=== PATIENT | male | born 1955 | race Caucasian/White ===

== ENCOUNTER → 2018-08-22 10:07 | Outpatient (CLI) | payer MEDICARE, OTHER, SELFPAY ==
--- NOTE | 2018-08-22 | DI.CT.S_ITS ---
PROCEDURE: CT SINUS SCREEN WO CON INDICATIONS: SINUSITIS TECHNIQUE: Noncontrast 3.0 mm axial images acquired from the frontal sinuses to the mid-sella, with coronal and sagittal reformats. For radiation dose reduction, the following was used: automated exposure control, adjustment of mA and/or kV according to patient size. COMPARISON: None. FINDINGS: Image quality: Excellent. Maxillary Sinuses: No bony remodeling or destruction. Sinuses are clear. Ethmoid Air Cells: No bony remodeling or destruction. Sinuses are clear. Sphenoid Sinuses: No bony remodeling or destruction. Sinuses are clear. Frontal Sinuses: No bony remodeling or destruction. Sinuses are clear. Note is made that the right frontal sinus is poorly developed. Ostiomeatal Complexes: Ostiomeatal complexes are patent, yet they are constitutionally narrowed. No Danielle cells. Miscellaneous: Visualized intra-orbital contents are normal. There is a minimal right sided mitch bullosa. There is moderate leftward nasal septal deviation. IMPRESSION: No significant active paranasal sinus disease is seen. Constitutionally narrowed ostiomeatal complexes, which remain patent. Moderate leftward nasal septal deviation. Dictated by: Phan Del Real M.D. on 08/22/2018 at 9:39 Approved by: Phan Del Real M.D. on 08/22/2018 at 9:41
== END ==
PROVIDERS: PCP Internal Medicine; Visit Provider Family Medicine
DX: J01.90 Acute sinusitis, unspecified (principal); J34.2 Deviated nasal septum
CPT/HCPCS: 70486

== ENCOUNTER → 2019-07-05 08:36 | Outpatient (CLI) | payer MEDICARE, OTHER, SELFPAY ==
[2019-07-05 09:18] LABS: Add Manual Diff / Slide Review NO; Basophils Absolute Auto 0 /uL (0-100); Basophils Percent Auto 0.7 % (0-2); Eosinophils Absolute Auto 200 /uL (0-450); Eosinophils Percent Auto 2.6 % (2-4); Hematocrit 46.2 % (41-53); Lymphocytes Absolute Auto 2200 /uL (1100-4500); Mean Corpuscular HGB Conc 34.7 % (30-36); Mean Corpuscular Volume 89.5 fL (80-100); Monocytes Absolute Auto 700 /uL (0-900); Monocytes Percent Auto 9.3 % (3-14); Neutrophils Absolute Auto 4100 /uL (1500-7000); Neutrophils Percent Auto 57.4 % (50-75); Platelet Count 236 X10^3/uL (150-400); Red Blood Cell Count 5.16 X10^6/uL (4.5-5.9); Red Cell Distribution Width 13.2 % (11.6-14.8); White Blood Cell Count 7.2 X10^3/uL (4.5-11.0)
[2019-07-05 09:57] LABS: Albumin 4.3 g/dL (3.5-5.0); BUN Creatinine Ratio 23.3 (6-22); Blood Urea Nitrogen 21 mg/dL (9-20); Calcium 9.9 mg/dL (8.4-10.2); Carbon Dioxide 30 mmol/L (22-32); Chloride 102 mmol/L (98-107); Estimated Glomerular Filt Rate > 60.0 mL/min (>60); Glucose 114 mg/dL (80-110); HEMOLYSIS < 15 (0-50); Phosphorous 3.1 mg/dL (2.3-3.7); Potassium 4.8 mmol/L (3.4-5.1); Sodium 139 mmol/L (137-145)
== END ==
PROVIDERS: PCP Family Medicine; Visit Provider Orthopaedic Surgery Foot and Ankle Surgery
DX: Z01.812 Encounter for preprocedural laboratory examination (principal); Z01.818 Encounter for other preprocedural examination
CPT/HCPCS: 36415; 80069; 85025; 93005

== ENCOUNTER 2019-07-13 09:28 | Day surgery (SDC) | payer MEDICARE, OTHER, SELFPAY ==
[2019-07-09 15:20] VITALS: BMI 30.8
[2019-07-13] VITALS (7 sets, daily range): BP systolic 126–147; BP diastolic 80–92; PULSE 60–82; RESP 8–18; TEMP 36.1–36.8; O2SAT 93–98; BMI 30.8
--- NOTE | 2019-07-13 | DI.RAD.S_ITS ---
PROCEDURE: XR FOOT RT 2V INDICATIONS: BUNION CORRECTION W/ 1ST TARSAL TECHNIQUE: 2 views of the foot were acquired. COMPARISON: [facility] [place], [place], XR FOOT 3 VIEWS WEIGHT BEARING RIGHT, 06/29/2019, 8:22. FINDINGS: Limited intraoperative fluoroscopic images of the right foot were acquired. Status post interval bunionectomy of the right first metatarsophalangeal joint with base of first metatarsal osteotomy and arthrodesis across the first tarsometatarsal joint. No acute hardware complication. Soft tissue anchors noted over the head of the second and third metatarsals. IMPRESSION: Intraoperative fluoroscopic support for right foot bunionectomy and first metatarsal osteotomy with arthrodesis across the first tarsometatarsal joint. Dictated by: Daquan Mckeon M.D. on 07/14/2019 at 0:19 Approved by: Daquan Mckeon M.D. on 07/14/2019 at 0:22
--- NOTE | 2019-07-13 10:23 | PM.PREOP ---
Pre-operative Note Interval Note History & Physical reviewed/Exam performed by Physician: Yes Changes to H&P: No
--- NOTE | 2019-07-13 10:53 | P.OP_ITS ---
Operative Date/Time/Diagnoses Date of procedure: 07/13/19 Time of procedure: 13:45 Pre-op diagnosis: Right hallux valgus deformity M20.11 Right 2nd and 3rd metatarsalgia Post-op diagnosis: same Procedure & Clinicians Procedure: 1. Right lapidus bunionectomy 1st tarsometatarsal arthrodesis CPT code 40246 2. Kim metatarsal shortening osteotomy 2nd metatarsal 94531 3. Kim metartsal shortening osteotmy 3rd metatarsal 36946 Indications: Patient is a 64-year-old male with a chronically painful right hallux valgus deformity. He has not been able to get relief with alternative shoes and non operative treatment. He also endorses pain under the 2nd and 3rd metatarsal heads. He has been indicated for bunion correction and shortening osteotomies of the 2nd and 3rd metatarsals for metatarsalgia. We discussed the rationale for risks of and prolonged recovery associated with the surgery. The patient expressed understanding of all issues including risks of infection, nerve damage, wound dehiscence, nonunion, malunion, symptomatic hardware, over correction or under correction of the deformity, incomplete relief of pain, inability to return to the patient's desired level function, generalized dissatisfaction with the surgical procedure and outcomes, deep vein thrombosis, pulmonary embolism, cardiac complications and . Patient understands the healing bones and soft tissues will take approximately 3 months and for full recovery 6 - 9 months. The patient also understands that it is critical to strictly elevate the operative extremity for the 1st 2 weeks after surgery to control both swelling and pain. Patient was counseled no weight will be allowed on the surgical leg until the patient is instructed that it is safe to initiate weight-bearing. Surgeon: Elisabeth Simon Click Yes if Unassisted: Yes Anesthesia Type: General Operative Notes Findings: Hallux valgus with hypermobile 1st ray. Hyperkeratotic area under the 2nd metatarsal. First TMT joint was debrided and repaired and secured with a regular standard right side Arthrex plantar Lapidus plate. Second Kim osteotomy was stabilized with a 2.0x 12 mm snap-off screw from the Arthrex set, 3rd metatarsal Kim was completed with an 11 mm 2.0 snap-off screw Closure Type: primary Specimen(s): none sent Applied: implant(s) (Arthrex right side standard plantar Lapidus plate and screws. 4.0 lag screw, 3.5 locking screws. Kim osteotomies were fixed with 2.0 snap-off screws) Estimated Blood Loss (mL): 20 Blood products transfused: none Tourniquet time (min): 120 Procedure in detail: The patient was seen in the preoperative area and the c onsent was confirmed and the surgical site was marked. Final questions were answered. The patient was brought to the operating room by the anesthesia team. All bony prominences were padded the patient was moved to the supine position. A well-padded thigh tourniquet was placed. Padding was placed and the peroneal nerve. The non operative extremity was placed into an SCD. The right lower extremity was prepped and draped in the standard fashion with the preoperative scrub with alcohol and chlorhexidine. Formal time-out procedure was performed confirming the patient's side and site of surgery presence of informed consent and administration of antibiotics which was clindamycin due to the patient's penicillin allergy. All were in agreement. Planned implants were in the room and accounted for. Esmarch bandage used for exsanguination and the tourniquet was raised on the thigh to 250 mm of mercury and stayed there for 120 minutes. Attention was turned to the right leg and foot. There is a moderate hallux valgus deformity with a hypermobile 1st ray. Additionally the relatively long and symptomatic 2nd and 3rd metatarsalgia. Attention was turned to the great toe. A plantar medial incision was made along the medial cuneiform and longitudinal border of the medial foot out and over the medial eminence to expose both the 1st TMT joint as well as the medial eminence. This was taken down through the skin subcutaneous tissue. Care was taken distally to protect the dorsal cutaneous nerve branch this was retracted dorsally. Capsulotomy was performed and this was elevated off the medial eminence to expose it. Additionally approximately at the 1st TMT joint the 1st TMT joint was exposed care was taken to protect the tibialis anterior insertion. And to expose the access to the plantar surface of the 1st TMT joint. Once the 1st TMT joint was exposed the K-wire tractor was placed distracting the joint. Osteotomes from the Synthes joint prep set were used to peel off the cartilage from the 1st TMT joint. Following this the power rasp was used to freshen the edges. Next irrigation was completed then the joint was finished being prepped with a 2.0 drill to make multiple drill holes followed by the osteotome to fish scale the joint. 1 cc of bone putty was placed into the arthrodesis site to aid fusion. Following this the wire distractor was removed the 1st metatarsal wire was used to de rotate the metatarsal and a large tenaculum clamp was used distally from the dorsal aspect of the medial eminence to the 2nd metatarsal neck to correct the angulation this was clamped in place then a K-wire was advanced from dorsal to plantar across the 1st TMT joint to establish the arthrodesis position. Next the 1st metatarsal wire was advanced into the 2nd to help hold. This alignment was checked on AP and lateral fluoroscopic imaging found to be excellent at reduction of the ROBERT and to recent to the metatarsal head over the sesamoids. Next to the standard right-sided plantar Lapidus plate was selected and placed onto the bone this was secured distally with a BB Elder and then proximally with the tech. Distally a cortical screw was placed securing the plate to the bone followed by a locking screw in the remaining distal hole. Next the 4 0 lag screw was drilled in the standard fashion prior to finally securing the lag screw all provisional K-wires were removed. This was final tightened at all allowed excellent compression across the joint. Next locking screws were placed into the 2 proximal holes. Distally the cortical screw was exchanged for a lock ing screw. Fluoroscopy images were evaluated again showing excellent correction of the ROBERT. Attention was then turned to the Kim osteotomies to the patient's symptomatic 2nd and 3rd metatarsalgia. A incision along the webspace between the 2nd and 3rd MTP joints was taken down through the skin. Blunt dissection was taken to the level of the 2nd metatarsal neck and a capsulotomy was made exposing the 2nd MTP joint. Hohmann retractors were placed along the metatarsal neck and small DPS saw was used to make a Kim osteotomy parallel to the ground in the standard fashion. This was shortened approximately 4 mm and transfixed with a 2 mm snap- off screw from the Arthrex set. This was a 12 mm snap-off screw. Next attention was turned to expose the 3rd metatarsal phalangeal joints to the same incision again with a longitudinal capsulotomy exposing the joint Homans around the metatarsal neck and then a Kim osteotomy in line with the plantar alignment of the foot to create the osteotomy. This was again shortened approximately 4 mm to create and nice cascade and secured with a 2 mm snap-off screw from the Arthrex set this was an 11 mm screw. Following this all the wounds were irrigated. The gauze that was between the 2nd and great toe remained in place to help well with alignment for closing the capsule. This was done with 2 O Vicryl suture after a small elliptical a capsulotomy was made to remove the redundant tissue. Next subcutaneous tissues closed with 2 O Vicryl deep then 4 0 Monocryl [place] [address] nylon in the skin. Prior to final closure the tourniquet was released and hemostasis was achieved. Sterile dressing was placed with a standard bunion dressing with the Webril gauze between the toes and secured with a Benson wrap and a well-padded posterior splint. Patient was awoken from anesthesia and taken to recovery room in good condition. There no immediate complications from this procedure. Complications: none Post-operative Condition: stable Disposition: PACU Plan for aftercare: Nonweightbearing right lower extremity. Elevate above left heart level for the 1st 2 weeks after surgery. Keep splint clean dry and intact. Start using aspirin 325 mg daily postop day 1 for DVT prophylaxis. Follow-up in 2 weeks as scheduled for splint removal. Patient was provided with Percocet and Toradol for pain relief as well as Colace for stool softener.
[2019-07-13] MEDS: LACTATED RINGERS 1,000 ML 42 ML IV ×2 (12:00→15:45)
[2019-07-13] MEDS: CLINDAMYCIN 900 MG/50 ML PIGGYBACK 50 MG IV (13:18)
--- NOTE | 2019-07-13 13:51 | SUR.OPER ---
Supine on padded OR bed, head on pillow, arms secured on padded arm boards at <90 degrees abduction, legs uncrossed, safety belt at thigh, tape over blanket over lower legs.
[2019-07-13] MEDS: BUPIVACAINE 0.25% W/ EPI 30 ML VIAL INJ (16:15)
--- NOTE | 2019-07-13 17:24 | SUR.PHASEII ---
Call light within reach. Juice and water provided. Spouse at bedside.
--- NOTE | 2019-07-13 22:11 | SUR.PHASEII ---
Patient's spouse called at approximately 2150 and reported patient c/o numb three side toes. Toes are pink and warm per pt's spouse. Dr. Simon present and notified. VVO ok for patient to remove gauze from between small toes, but not from between big toe and second toe. Patient may also stretch the adria around his toes but should not remove the adria per Dr. Simon. Encouraged elevation of the surgical extremity and for patient to call MD's office with further concerns. Patient's spouse agreed.
== END 2019-07-13 18:26 | disposition home or self-care (01) ==
PROVIDERS: Family Provider Family Medicine; PCP Family Medicine; Visit Provider Orthopaedic Surgery Foot and Ankle Surgery
PROC: (CPT 28292; principal; 2019-07-13 12:15)
DX: M20.11 Hallux valgus (acquired), right foot (principal); M77.41 Metatarsalgia, right foot; M24.9 Joint derangement, unspecified; I10 Essential (primary) hypertension
CPT/HCPCS: 28297; 28308 ×2; 73620; 76000; J1100; J1170; J1885; J2250; J2405; J2704; J3010

== ENCOUNTER → 2019-09-05 12:36 | Outpatient (CLI) | payer MEDICARE, OTHER, SELFPAY ==
--- NOTE | 2019-09-05 | DI.RAD.S_ITS ---
PROCEDURE: XR CHEST 2V INDICATIONS: cough x 2 weeks TECHNIQUE: 2 views of the chest were acquired. COMPARISON: [facility], , CHEST 2 VIEW, 10/31/2006, 16:47. FINDINGS: Surgical changes and devices: None. Lungs and pleura: Lungs are clear. No pleural effusions or pneumothorax. Mediastinum: Mediastinal contours are normal. Heart size is normal. Bones and chest wall: No suspicious bony abnormalities. Soft tissues appear unremarkable. IMPRESSION: Normal for age, source of current persistent cough symptoms is not seen. Dictated by: Randell Jennings M.D. on 09/05/2019 at 14:53 Approved by: aRndell Jennings M.D. on 09/05/2019 at 14:53
== END ==
PROVIDERS: PCP Family Medicine; Visit Provider Family Medicine
DX: R05 Cough (principal)
CPT/HCPCS: 71046

== ENCOUNTER → 2019-10-08 08:46 | Outpatient (CLI) | payer MEDICARE, OTHER, SELFPAY ==
--- NOTE | 2019-10-12 16:46 | PM.PFT.1 ---
Pulmonary Function Test Referral & Results Date Patient Seen: 10/08/19 Requesting provider: Rosetta Plata Results: The spirometry demonstrates an FVC of 5.19 L which is 113% of predicted. The FEV1 was measured at 3.82 L which is 112% of predicted. The FEV1/FVC ratio was 74 which is 98% of predicted. Following the administration of bronchodilator there was no appreciable change to above normal numbers. Lung volumes show an SVC of 5.26 L which is 113% of predicted. The diffusing capacity was measured at 20.02 which is 86% of predicted. The maximum voluntary ventilation was normal Interpretation: This study demonstrates normal pulmonary function
== END ==
PROVIDERS: PCP Family Medicine; Referring Provider Family Medicine; Visit Provider Family Medicine
DX: R06.09 Other forms of dyspnea (principal); Z87.891 Personal history of nicotine dependence
CPT/HCPCS: 94060; 94726; 94729

== ENCOUNTER → 2020-01-23 10:10 | Outpatient (CLI) | payer MEDICARE, OTHER, SELFPAY ==
[2020-01-23 22:38] LABS: COVID19 Sendout Not Detected (Not Detect)
== END ==
PROVIDERS: PCP Family Medicine; Visit Provider Registered Nurse
DX: Z01.812 Encounter for preprocedural laboratory examination (principal)
CPT/HCPCS: 87635

== ENCOUNTER 2020-01-25 10:49 | Day surgery (SDC) | payer MEDICARE, OTHER, SELFPAY ==
[2020-01-18 11:56] VITALS: BMI 30.7
[2020-01-25] VITALS (10 sets, daily range): BP systolic 130–151; BP diastolic 77–98; PULSE 53–66; RESP 10–16; TEMP 35.6–36.3; O2SAT 94–99; BMI 29.8
--- NOTE | 2020-01-25 11:34 | PM.PREOP ---
Pre-operative Note COVID-19 COVID-19 status: Negative Result date/Date tested (Pos, Neg/Pending): 01/23/20 Interval Note History & Physical reviewed/Exam performed by Physician: Yes Changes to H&P: No
[2020-01-25] MEDS: LACTATED RINGERS 1,000 ML 42 ML IV (11:46)
[2020-01-25] MEDS: CLINDAMYCIN 900 MG/50 ML PIGGYBACK 50 MG IV (12:12)
--- NOTE | 2020-01-25 12:45 | SUR.OPER ---
Supine on padded OR bed, head on pillow, arms secured on padded arm boards at <90 degrees abduction, legs uncrossed, safety belt at thigh, tape over blanket over left lower leg.
[2020-01-25] MEDS: BUPIVACAINE 0.25% W/ EPI 30 ML VIAL INJ (12:53)
--- NOTE | 2020-01-25 14:48 | SUR.PHASEI ---
Patient awake, A/O. Tolerating po. Gave po medication for c/o pain. Cap refill > 2 seconds. Patient able to wiggle toes, skin color pink.
[2020-01-25] MEDS: HYDROCODONE/ACET 5/325 TABLET 1 TAB PO (14:53)
--- NOTE | 2020-01-25 18:07 | P.OP_ITS ---
Operative Date/Time/Diagnoses Date of procedure: 01/25/20 Time of procedure: 12:20 Pre-op diagnosis: Injury extensor tendon toe right foot 2nd and 3rd toe extensor digitorum longus ruptures s96.909a Post-op diagnosis: same Procedure & Clinicians Procedure: Repair extensor digitorum longus tendon right 2nd toe CPT code 08297- T7 Repair extensor digitorum longus tendon right 3rd toe CPT code 05107-Q5 Same procedure as scheduled: Yes Indications: Patient is a 64-year-old male that underwent a bunion correction and 2nd metatarsal shortening over 6 months ago. He also had a 2nd toe extensor tendon lengthening during that procedure. During the postoperative period he did have a moment where he had a spasm of his foot and a sharp stretch he endorsed a pop and sharp pain over the dorsum of his foot near the base of the 2nd toe all the way up to his mid foot. Later noticed that the 2nd and 3rd toes were droopy and found himself tripping over them. He has an exam consistent with an extensor tendon rupture to the 2nd and 3rd toes. Given that he has been tripping over them , he he has been indicated for exploration repair versus t ransfer. Risks of stiffness re-rupture and wound healing problems were discussed with the patient. The risks and benefits of the procedure have been discussed with the patient even opportunity to ask questions. The risks of surgery include but are not limited to infection, re-rupture, persistence of pain, damage to nerves and blood vessels, posttraumatic arthritis, DVT, PE, cardiopulmonary complications and . The patient expressed a thorough understanding of the risks and benefits of surgery and has elected to proceed. Consent was signed. Surgeon: Elisabeth Simon Click Yes if Unassisted: Yes Anesthesia Type: General and Local Operative Notes Findings: Rupture in situ long extensor tendons to the 2nd and 3rd toes. Severe scarring over the tendon rupture and 2nd MTP joint capsule with the rupture in situ but functionally ruptured with significant elongation and socked in scar along both the 2nd and 3rd toe long extensors. No significant retraction. These were dissected out tendons were isolated appropriately shortened and repai red with 2-0 FiberWire and 4 0 Vicryl suture Closure Type: primary Specimen(s): none sent Estimated Blood Loss (mL): 5 Blood products transfused: none Tourniquet time (min): 60 Procedure in detail: Patient was seen in the preoperative area the site of surgery was marked informed consent confirmed. Patient was then brought back to the operating room by the anesthesia team. He was positioned supine on operative table. All bony prominences well padded. Contralateral lower extremity SCD was placed. General anesthesia was administered. The right lower extremities prepped and draped in the standard sterile fashion. Formal time-out procedure was performed confirming the patient's side and site of surgery presence of informed consent. Next the well-padded thigh tourniquet was inflated after Esmarch exsanguination. This was elevated 250 mm mercury and stayed there for approximately 1 hour. Right foot was inspected. There is no palpable extensor tendon tension over the 2nd and 3rd toes and they were droopy with increased plantar flexion compared to the other toes with resting position. Previous incision between the 2nd and 3rd metatarsal heads was reopened and extended distally over the 2nd proximal phalanx and proximally between the 2nd and 3rd metatarsals. Careful dissection was taken through the skin and subcutaneous tissue. Immediately a thick superficial scar was noted this was carefully opened with tenotomy scissors and the deep knife dissecting out the extensor tendon proximally and then working our way distally. Additionally starting far distal over the proximal phalanx for the 2nd toe and then working back toward the MTP capsule where there was significant thick scar tissue. Extreme care was taken dissecting along extensor for the 2nd toe out. The rupture in situ was noted at the level of the 2nd metatarsal neck with the thick normal tendon proximally and a thin nondescript scar distally at the area of the metatarsal head and normal tendon again at the MTP joint and proximal phalanx. Next the same procedure was done for the 3rd toe. Again finding the tendon proximally and tracing it distally this was found to be a rupture couple in situ with a similar scarred in lax tendon at the level of the MTP joint. Next the 3rd long extensor was repaired 1st. The rupture and scar tissue was debrided attendant was effectively shortened and then repaired utilizing a gift box and Krackow 2 0 FiberWire suture. This restored appropriate tension and continuity to the long extensor tendon. Attention was then turned to the 2nd toe the distal tendon was 1st tubularized with a 4 0 Vicryl stitch in the rupture was repaired in a similar fashion with shortening and a gift box Krackow 2 0 FiberWire suture. Again this restored excellent continuity and a resting tension to the 2nd toe. This point the repairs were tested with gentle range of motion no gapping was visualized. Tourniquet was then released hemostasis was achieved wounds were closed with 4 0 Vicryl 4 0 Monocryl and 4 0 nylon suture. 10 cc of 0.25% Marcaine with epinephrine was injected for local anesthetic. Patient had dressings placed with Xeroform gauze Benson wrap and an Franky wrap. Additional Webril coated with Coban was used as a bolster under the toes to prevent excessive plantar flexion and reduce tension on the extensor repair. This was incorporated into the dressing and then wrapped with a Franky wrap and placed into the postoperative boot. Patient was woken from anesthesia and taken to recovery room in good condition. There no immediate complications this procedure. Complications: none Post-operative Condition: stable Disposition: PACU Plan for aftercare: Patient will be weight bear as tolerated in the boot should use an assistive device as needed. Will wear the boot at night. In about 2 weeks will switch to the postop shoe again using the bolster to protect the repair.
== END 2020-01-25 15:51 | disposition home or self-care (01) ==
PROVIDERS: PCP Family Medicine; Referring Provider Orthopaedic Surgery Foot and Ankle Surgery; Visit Provider Orthopaedic Surgery Foot and Ankle Surgery
PROC: (CPT 27691; principal; 2020-01-25 12:15)
DX: M66.271 Spontaneous rupture of extensor tendons, right ankle and foot (principal); Z98.890 Other specified postprocedural states
CPT/HCPCS: 28208 ×2; J1100; J2250; J2405; J2704; J3010

== ENCOUNTER → 2020-03-08 15:01 | Outpatient (CLI) | payer MEDICARE, OTHER, SELFPAY ==
--- NOTE | 2020-03-08 15:03 | DI.MRI.S_ITS ---
PROCEDURE: MR CERVICAL SPINE WO CON INDICATIONS: CERVICALGIA TECHNIQUE: Noncontrast sagittal T1 spin echo and T2 fast spin echo, sagittal STIR, foraminal oblique sagittal T2 fast spin echo, and axial gradient echo or T2 fast spin echo through the cervical spine. COMPARISON: None. FINDINGS: Image quality: Excellent. Alignment and Curvature: Straightening of the normal lordotic curvature. Grade 1 retrolisthesis of C5 on C6. Multilevel degenerative endplate sclerosis and spurring. Diffuse facet arthropathy. No fracture identified . Spinal Cord: Visualized spinal cord has normal size and signal. No cerebellar tonsillar herniation. Paraspinous Soft Tissues: No paravertebral masses. Prevertebral soft tissues are normal in thickness. C2-C3: Normal appearance. C3-C4: No definite canal stenosis. Mild bilateral foraminal stenosis with slight nerve root compression. C4-C5: No canal stenosis. Severe right foraminal narrowing with nerve root compression. Mild left foraminal stenosis. C5-C6: Mild canal narrowing, which is slightly left-sided predominant. Severe bilateral foraminal stenoses, although right greater left. Nerve root compression is seen on both sides, right greater than left. C6-C7: Mild canal narrowing which is predominantly left-sided. Mild canal narrowing. Severe bilateral foraminal stenosis with nerve root compression. C7-T1: Mild canal narrowing. Mild bilateral foraminal stenosis with slight nerve root compression. IMPRESSION: Mild lower cervical canal stenosis, predominantly left-sided as above Multilevel diffuse bilateral foraminal stenosis as detailed above by spinal level. Grade 1 retrolisthesis of C5 on C6. Dictated by: Ender Real M.D. on 03/10/2020 at 9:18 Approved by: Ender Real M.D. on 03/10/2020 at 9:31
== END ==
PROVIDERS: PCP Family Medicine; Referring Provider Family Medicine; Visit Provider Physical Medicine & Rehabilitation Pain Medicine
DX: M54.2 Cervicalgia (principal); M48.02 Spinal stenosis, cervical region; M43.12 Spondylolisthesis, cervical region
CPT/HCPCS: 72141

== ENCOUNTER → 2020-03-20 17:37 | Outpatient (CLI) | payer MEDICARE, OTHER, SELFPAY ==
--- NOTE | 2020-03-20 | DI.MRI.S_ITS ---
PROCEDURE: MR THORACIC SPINE WO CON INDICATIONS: spondylosis without myelopathy or radiculopathy TECHNIQUE: Noncontrast sagittal T1 spine echo and T2 fast spin echo, sagittal STIR, axial T1 and T2 fast spin echo through the thoracic spine. COMPARISON: None. FINDINGS: Image quality: Excellent. Alignment and Curvature: There is normal bony alignment. Bone Marrow: Marrow is of normal overall signal. No acute vertebral body compression fractures. T11 hemangioma. Spinal Cord: Visualized spinal cord is normal in size and signal. Paraspinous Soft Tissues: No paravertebral masses. Disc space levels: Multilevel disc desiccation is present. Mild diffuse disc bulge at T7-T8, causing mild canal stenosis. No significant foraminal stenosis. IMPRESSION: 1. Multilevel degenerative disc disease. 2. No neural impingement. Dictated by: Amy Melgar M.D. on 03/21/2020 at 8:32 Approved by: Amy Melgar M.D. on 03/21/2020 at 8:34
== END ==
PROVIDERS: PCP Family Medicine; Referring Provider Family Medicine; Visit Provider Physical Medicine & Rehabilitation Pain Medicine
DX: M47.814 Spondylosis without myelopathy or radiculopathy, thoracic region (principal); M51.34 Other intervertebral disc degeneration, thoracic region
CPT/HCPCS: 72146

== ENCOUNTER → 2021-06-04 14:58 | Outpatient (CLI) | payer MEDICARE, OTHER, SELFPAY ==
--- NOTE | 2021-06-04 15:03 | DI.US.S_ITS ---
PROCEDURE: US ABDOMEN COMPLETE INDICATIONS: ACUTE ABDOMEN PAIN TECHNIQUE: Real-time scanning was performed of the abdominal and retroperitoneal organs, with image documentation. COMPARISON: None. FINDINGS: Liver: Liver is diffusely increased in echogenicity. No focal hepatic abnormalities identified. Normal hepatic size. Gallbladder: No gallstones identified. Normal gallbladder wall. No pericholecystic fluid. Negative sonographic Rodas sign. Biliary ducts: Intrahepatic bile ducts are non-dilated. Extrahepatic bile duct not well seen Pancreas: Visualized portions of the pancreas are sonographically normal. Spleen: Spleen is normal in size and homogeneous in echotexture. Kidneys: Kidneys are normal in size and echotexture. Right kidney measures 10.3 cm long; left kidney measures 10.3 cm long. No hydronephrosis or nephrolithiasis. No solid masses. Aorta: Visualized aorta is normal in caliber at less than 3 cm. Iliacs: Proximal common iliac arteries are normal in caliber at less than 2.5 cm. IVC: Intrahepatic inferior vena cava is patent. Miscellaneous: No free abdominal fluid. IMPRESSION: 1. Increased hepatic echogenicity noted possibly related to hepatic steatosis but other sources of hepatocellular disease cannot be excluded. Recommend clinical correlation. 2. No source for abdominal pain identified. Dictated by: Dusty DAMON Interpreted: Elton Thomas MD on 06/04/2021 at 16:39 Transcribed by: RABIA on 06/04/2021 at 16:40 Approved by: Elton Thomas M.D. on 06/04/2021 at 17:01
== END ==
PROVIDERS: PCP Family Medicine; Referring Provider Family Medicine; Visit Provider Family Medicine
DX: R10.0 Acute abdomen (principal); M54.9 Dorsalgia, unspecified
CPT/HCPCS: 76700

== ENCOUNTER → 2021-06-04 14:59 | Outpatient (CLI) | payer MEDICARE, OTHER, SELFPAY ==
--- NOTE | 2021-06-04 15:05 | DI.RAD.S_ITS ---
PROCEDURE: XR CHEST 2V INDICATIONS: ABDOMEN PAIN TECHNIQUE: 2 views of the chest were acquired. COMPARISON: [facility], CR, XR CHEST 2V, 09/05/2019, 13:01. FINDINGS: Surgical changes and devices: None. Lungs and pleura: Lungs are clear. No pleural effusions or pneumothorax. Mediastinum: Mediastinal contours are normal. Heart size is normal. Bones and chest wall: No suspicious bony abnormalities. Soft tissues appear unremarkable. IMPRESSION: No acute cardiopulmonary disease process. Dictated by: Ines Melendez MD, PhD on 06/04/2021 at 17:00 Approved by: Ines Melendez MD, PhD on 06/04/2021 at 17:00
== END ==
PROVIDERS: PCP Family Medicine; Referring Provider Family Medicine; Visit Provider Family Medicine
DX: M54.9 Dorsalgia, unspecified (principal); R10.0 Acute abdomen
CPT/HCPCS: 71046; 76700

== ENCOUNTER → 2021-06-23 11:32 | Outpatient (CLI) | payer MEDICARE, OTHER, SELFPAY ==
--- NOTE | 2021-06-23 12:01 | DI.CT.S_ITS ---
PROCEDURE: CT CHEST ABD PEL W CON INDICATIONS: Unspecified abdominal pain TECHNIQUE: After the administration of oral and intravenous contrast, axial sections acquired from the supraclavicular neck to the pubic symphysis. Coronal and sagittal reformats were performed. For radiation dose reduction, the following was used: automated exposure control, adjustment of mA and/or kV according to patient size. COMPARISON: None. FINDINGS: Image quality: Excellent. CHEST: Lower Neck: No enlarged lymph nodes. Thyroid: Within normal limits. Axillae: No enlarged lymph nodes. Chest Wall: Unremarkable. Lungs and Airways: No consolidation or suspicious nodules. Pleura: No pneumothorax or pleural effusions. Heart: Heart size is normal. No pericardial effusion. Moderate coronary artery calcifications. Thoracic Vessels: The aorta and pulmonary arteries demonstrate normal size. Mediastinum and Maria Teresa: No enlarged lymph nodes. Esophagus: No wall thickening. No hiatal hernia. ABDOMEN: Liver: Mild hepatic steatosis. No focal liver lesions.. Gallbladder: Unremarkable. Biliary ducts: Unremarkable. Pancreas: Unremarkable. Spleen: Unremarkable. Adrenal Glands: Unremarkable. Kidneys and Ureters: Unremarkable. Stomach and Bowel: Stomach, small bowel loops, and colon are unremarkable. Peritoneum: No abnormal intraperitoneal fluid. No free air. Ventral Wall: No hernia. Abdominal Nodes: No retroperitoneal or mesenteric adenopathy by size criteria. Vessels: Aorta and inferior vena cava are normal in size. PELVIS: Pelvic Organs: Unremarkable. Bladder: Unremarkable. Pelvic Nodes: No enlarged lymph nodes. Miscellaneous: No inguinal hernias are seen. Bones: Lower lumbar degenerative change. No lytic or blastic bony lesions. No compression fractures. IMPRESSION: 1. No evidence acute process in the chest, abdomen, and pelvis. 2. Coronary artery disease. 3. Mild hepatic steatosis. Dictated by: Naif Gant M.D. on 06/23/2021 at 15:26 Approved by: Naif Gant M.D. on 06/23/2021 at 15:28
== END ==
PROVIDERS: PCP Family Medicine; Referring Provider Family Medicine; Visit Provider Family Medicine
DX: R10.9 Unspecified abdominal pain (principal); R07.9 Chest pain, unspecified; I25.10 Atherosclerotic heart disease of native coronary artery without angina pectoris; K76.0 Fatty (change of) liver, not elsewhere classified
CPT/HCPCS: 71260; 74177

== ENCOUNTER → 2021-12-03 15:37 | Outpatient (CLI) | payer MEDICARE, OTHER, SELFPAY ==
--- NOTE | 2021-12-03 | DI.RAD.S_ITS ---
PROCEDURE: XR CHEST 2V INDICATIONS: acute cough TECHNIQUE: 2 views of the chest were acquired. COMPARISON: None. FINDINGS: Surgical changes and devices: None. Lungs and pleura: Lungs are clear. No pleural effusions or pneumothorax. Mediastinum: Mediastinal contours are normal. Heart size is normal. Bones and chest wall: No suspicious bony abnormalities. Soft tissues appear unremarkable. IMPRESSION: No acute cardiopulmonary disease process. Dictated by: Ines Melendez MD, PhD on 12/03/2021 at 17:15 Approved by: Ines Melendez MD, PhD on 12/03/2021 at 17:16
== END ==
PROVIDERS: PCP Family Medicine; Referring Provider Family Medicine; Visit Provider Family Medicine
DX: R05.9 Cough, unspecified (principal)
CPT/HCPCS: 71046

== ENCOUNTER → 2022-10-05 06:57 | Outpatient (CLI) | payer MEDICARE, OTHER, SELFPAY ==
--- NOTE | 2022-10-05 | DI.US.S_ITS ---
PROCEDURE: US ABDOMEN LIMITED INDICATIONS: HISTORY OF FATTY LIVER TECHNIQUE: Real-time scanning was performed of the abdominal and retroperitoneal organs, with image documentation. COMPARISON: [facility], US, US ABDOMEN COMPLETE, 06/04/2021, 15:37. FINDINGS: Liver: The liver measures 13.5 cm in length and demonstrates diffusely increased echogenicity throughout. There are multiple subtle hypoechoic foci within the liver suggesting focal fatty sparing, the most prominent of which is at the stephania hepatis. Gallbladder: The gallbladder wall measures 2.6 mm in diameter. No stones, sludge, pericholecystic fluid, or sonographic Rodas sign. Biliary ducts: Intrahepatic bile ducts are non-dilated. Extrahepatic bile duct caliber measures 4.7 mm. Normal is 6-7 mm or less in diameter, or 10 mm or less post-cholecystectomy. Pancreas: Visualized portions of the pancreas are sonographically normal. The body and tail of the pancreas are not well visualized IMPRESSION: 1. Increased hepatic echogenicity noted likely related to fatty infiltration of the liver but other sources of hepatocellular disease cannot be excluded. 2. No cholelithiasis or findings to suggest choledocholithiasis or acute cholecystitis. Dictated by: Sarah Mathews M.D. on 10/05/2022 at 8:54 Approved by: Sarah Mathews M.D. on 10/05/2022 at 9:00
== END ==
PROVIDERS: PCP Family Medicine; Referring Provider Family Medicine; Visit Provider Family Medicine
DX: K76.0 Fatty (change of) liver, not elsewhere classified (principal)
CPT/HCPCS: 76705

== ENCOUNTER → 2023-04-05 08:13 | Outpatient (CLI) | payer MEDICARE, OTHER, SELFPAY ==
--- NOTE | 2023-04-05 | DI.US.S_ITS ---
PROCEDURE: US ABDOMEN LIMITED INDICATIONS: FAATTY LIVER TECHNIQUE: Real-time scanning was performed of the abdominal and retroperitoneal organs, with image documentation. COMPARISON: [facility], , US ABDOMEN LIMITED, 10/05/2022, 7:08. FINDINGS: Liver: The liver measures 16.8 cm in length and demonstrates slightly increased echogenicity. Gallbladder: The gallbladder wall measures 1.0 cm in diameter. No stones, sludge, pericholecystic fluid, or sonographic Rodas sign. Biliary ducts: Intrahepatic bile ducts are non-dilated. Extrahepatic bile duct caliber measures 2 mm. Normal is 6-7 mm or less in diameter, or 10 mm or less post-cholecystectomy. Pancreas: Visualized portions of the pancreas are sonographically normal. The tail the pancreas is not well visualized. Spleen: Spleen is normal in size and homogeneous in echotexture. IMPRESSION: 1. Increased hepatic echogenicity noted likely related to fatty infiltration of the liver but other sources of hepatocellular disease cannot be excluded. Dictated by: Sarah Mathews M.D. on 04/05/2023 at 10:22 Approved by: Sarah Mathews M.D. on 04/05/2023 at 10:30
== END ==
PROVIDERS: PCP Family Medicine; Referring Provider Family Medicine; Visit Provider Family Medicine
DX: K76.0 Fatty (change of) liver, not elsewhere classified (principal)
CPT/HCPCS: 76705

== ENCOUNTER → 2023-08-04 12:58 | Outpatient (CLI) | payer MEDICARE, OTHER, SELFPAY ==
--- NOTE | 2023-08-04 | DI.RAD.S_ITS ---
PROCEDURE: XR CHEST 2V INDICATIONS: COUGH TECHNIQUE: 2 views of the chest were acquired. COMPARISON: [facility], CR, XR CHEST 2V, 12/03/2021, 15:30. [facility], CR, XR CHEST 2V, 06/04/2021, 15:10. FINDINGS: Surgical changes and devices: None. Lungs and pleura: Lungs are clear. No pleural effusions or pneumothorax. Mediastinum: Mediastinal contours are normal. Heart size is normal. Bones and chest wall: No suspicious bony abnormalities. Soft tissues appear unremarkable. IMPRESSION: No acute cardiopulmonary abnormality is seen. Dictated by: Jason Nick M.D. on 08/04/2023 at 15:42 Approved by: Jason Nick M.D. on 08/04/2023 at 15:43
[2023-08-04 13:51] LABS: Add Manual Diff / Slide Review NO; Basophils Absolute Auto 100 /uL (0-100); Basophils Percent Auto 0.7 % (0-2); Eosinophils Absolute Auto 200 /uL (0-450); Eosinophils Percent Auto 1.7 % (2-4); Hematocrit 46.2 % (41-53); Hemoglobin 15.9 g/dL (13.5-17.5); Lymphocytes Absolute Auto 2200 /uL (1100-4500); Lymphocytes Percent Auto 21.6 % (25-40); Mean Corpuscular HGB Conc 34.5 % (30-36); Monocytes Absolute Auto 1100 /uL (0-900); Monocytes Percent Auto 11.4 % (3-14); Neutrophils Absolute Auto 6500 /uL (1500-7000); Neutrophils Percent Auto 64.6 % (50-75); Platelet Count 235 X10^3/uL (150-400); Red Blood Cell Count 5.31 X10^6/uL (4.5-5.9); Red Cell Distribution Width 13.6 % (11.6-14.8); White Blood Cell Count 10.1 X10^3/uL (4.5-11.0)
[2023-08-04 14:12] LABS: BUN Creatinine Ratio 18.4 (6-22); Blood Urea Nitrogen 16 mg/dL (9-20); Calcium 9.9 mg/dL (8.4-10.2); Carbon Dioxide 21 mmol/L (22-32); Chloride 105 mmol/L (98-107); Estimated Glomerular Filt Rate > 60 mL/min (>60); Glucose 96 mg/dL (80-110); HEMOLYSIS < 15 (0-50); Potassium 4.2 mmol/L (3.4-5.1); Sodium 136 mmol/L (137-145)
== END ==
PROVIDERS: PCP Family Medicine; Referring Provider Family Medicine; Visit Provider Family Medicine
DX: R05.1 Acute cough (principal); Z13.0 Encounter for screening for diseases of the blood and blood-forming organs and certain disorders involving the immune mechanism
CPT/HCPCS: 0241U; 36415; 71046; 80048; 85025

== ENCOUNTER → 2023-08-04 13:05 | Outpatient (ROUT) | payer MEDICARE, OTHER, SELFPAY ==
[2023-08-04 13:46] LABS: Influenza A - CEPHEID Flu A NEGATIVE (NEGATIVE); Influenza B - CEPHEID Flu B NEGATIVE (NEGATIVE); Respiratory Syncytial Virus Negative (Negative)
[2023-08-04 14:06] LABS: COVID-19 CEPHEID 4-PLEX PCR Negative (Negative)
== END ==
PROVIDERS: PCP Family Medicine; Visit Provider Family Medicine
DX: R05.1 Acute cough (principal)
CPT/HCPCS: 0241U

== ENCOUNTER → 2023-10-20 06:41 | Outpatient (CLI) | payer MEDICARE, OTHER, SELFPAY ==
--- NOTE | 2023-10-20 06:43 | DI.US.S_ITS ---
PROCEDURE: US ABDOMEN LIMITED INDICATIONS: Fatty (change of) liver, not elsewhere classified TECHNIQUE: Real-time scanning was performed of the abdominal and retroperitoneal organs, with image documentation. COMPARISON: [facility], US, US ABDOMEN LIMITED, 04/05/2023, 8:35. FINDINGS: Liver: Increased liver echogenicity with posterior attenuation, most consistent with moderate steatosis. Gallbladder: No gallstones. No wall thickening. No pericholecystic edema. Negative sonographic Rodas's sign. Biliary ducts: Intrahepatic bile ducts are non-dilated. Extrahepatic bile duct caliber measures 3 mm. Normal is 6-7 mm or less in diameter, or 10 mm or less post-cholecystectomy. Pancreas: Visualized portions of the pancreas are sonographically normal. Miscellaneous: No free abdominal fluid. IMPRESSION: At least moderate hepatic steatosis. Correlate with elevated liver enzymes, as findings could indicate steatohepatitis. Dictated by: Abbe Stiles M.D. on 10/20/2023 at 11:03 Approved by: Abbe Stiles M.D. on 10/20/2023 at 11:04
== END ==
LOC: US 06:42
PROVIDERS: PCP Family Medicine; Referring Provider Family Medicine; Visit Provider Family Medicine
DX: K76.0 Fatty (change of) liver, not elsewhere classified (principal)
CPT/HCPCS: 76705